=== PATIENT | male | born 2000 | race Caucasian/White ===

== ENCOUNTER 2022-05-12 09:15 | Outpatient (CLI) | payer BC, SELFPAY ==
[2022-05-12 11:34] LABS: Chloride* 104 mmol/L (96-114); Potassium* 4.2 mmol/L (3.6-5.1); Sodium* 140 mmol/L (135-149)
[2022-05-12 11:36] LABS: Cholesterol* 157 mg/dL (90-199)
[2022-05-12 11:37] LABS: Blood Urea Nitrogen* 17 mg/dL (5-24); Calcium* 9.3 mg/dL (8.4-10.6); Carbon Dioxide* 27 mmol/L (20-32); Estimated Glomerular Filt Rate 108 ml/min; Glucose* 93 mg/dL (60-115); Triglycerides* 92 mg/dL (40-149)
[2022-05-12 11:38] LABS: HDL Cholesterol* 52 mg/dL (>=40); LDL Cholesterol Calculated 87 mg/dL (<100)
== END 2022-05-12 09:16 | disposition home or self-care (01) ==
PROVIDERS: PCP Family Medicine; Visit Provider Family Medicine
DX: Z00.00 Encounter for general adult medical examination without abnormal findings (principal); Z13.6 Encounter for screening for cardiovascular disorders
CPT/HCPCS: 80048; 80061

== ENCOUNTER 2025-01-26 08:02 | Outpatient (CLI) | payer BC, SELFPAY ==
--- NOTE | 2025-02-07 12:13 | W.PM.SLEEP ---
Sleep Study Details Details Interpreting Provider: Yane Date of Sleep Study: 01/26/25 Sleep Study Details: STUDY TYPE:? Home unattended ? BMI:? 32.25 ORDERING PROVIDER:? Yane INDICATION:? Concerned about sleep apnea ? SLEEP SUMMARY:? 404 minutes monitored RESPIRATORY SUMMARY:? AHI 12.5 Low oxygen 84 1.4% of study oxygen less than 90% Snoring none recorded PERIODIC LIMB MOVEMENTS OF SLEEP:? Not record CARDIAC:? Range 59-110, mean 75 beats per minute IMPRESSION:? Mild obstructive sleep apnea RECOMMENDATION: Treatment options include CPAP dental appliance and/or airway expansion surgery.
== END 2025-01-26 08:03 | disposition home or self-care (01) ==
LOC: SLEEP 08:03
PROVIDERS: PCP Family Medicine; Visit Provider Otolaryngology
DX: G47.33 Obstructive sleep apnea (adult) (pediatric) (principal)
CPT/HCPCS: 95806

== ENCOUNTER 2025-08-25 07:36 | Day surgery (SDC) | payer BC, SELFPAY ==
[2025-08-25] VITALS (12 sets, daily range): BP systolic 103–136; BP diastolic 54–87; PULSE 58–104; RESP 16–28; TEMP 36.3–37.2; O2SAT 92–97; BMI 38.5
[2025-08-25] MEDS: LACTATED RINGERS 1000 ML 1,000 ML 100 ML IV (07:45)
[2025-08-25] MEDS: SODIUM CHLORIDE 0.9 % (FLUSH) 10 ML SYRINGE IVF (08:05)
[2025-08-25] MEDS: OXYMETAZOLINE 0.05% NASAL SPRAY 2 SPRAY NOSTRIL-B (08:12)
[2025-08-25] MEDS: MUPIROCIN 1 GM PACKET 1 APPLIC TOPICAL (09:30)
[2025-08-25] MEDS: AYR SALINE NASAL GEL 1 APPLIC NOSTRIL-B (09:30)
[2025-08-25] MEDS: BUPIVACAINE 0.5%/EPINEPHRINE 0.9 MG (30.9 ML) INJECTION (09:30)
--- NOTE | 2025-08-25 09:47 | P.ANES_ITS ---
Anesthesia Charges Start Date/Time Anesthesia Start Date: 08/25/25 Anesthesia Start Time: 08:51 Stop Date/Time Anesthesia Stop Date: 08/25/25 Anesthesia Stop Time: 09:41 Coding CPT Codes CPT Codes: ANESTH NOSE/SINUS SURGERY - 90946 ([id number]) QK - PROCESS ARTIST 2-4 CNCRNT ANES PROC, QX - PLAIN CLOTHES POLICE OFFICER SVC W/ MD MED DIRECTION, P2 - PATIENT W/MILD SYST DISEASE
--- NOTE | 2025-08-25 09:47 | W.ANESCHARGE ---
Anesthesia Charges Start Date/Time Anesthesia Start Date: 08/25/25 Anesthesia Start Time: 08:51 Stop Date/Time Anesthesia Stop Date: 08/25/25 Anesthesia Stop Time: 09:41 Coding CPT Codes CPT Codes: ANESTH NOSE/SINUS SURGERY - 02042 ([id number]) QK - SSIS ARCHITECT 2-4 CNCRNT ANES PROC, QX - ACCOUNT STRATEGIST SVC W/ MD MED DIRECTION, P2 - PATIENT W/MILD SYST DISEASE
--- NOTE | 2025-08-25 09:49 | P.ANES_ITS ---
Anesthesia Charges Start Date/Time Anesthesia Start Date: 08/25/25 Anesthesia Start Time: 08:51 Stop Date/Time Anesthesia Stop Date: 08/25/25 Anesthesia Stop Time: 09:41 Coding CPT Codes CPT Codes: ANESTH NOSE/SINUS SURGERY - 41118 ([id number]) QK - CERTIFIED PERSONAL TRAINER 2-4 CNCRNT ANES PROC, QX - ALLERGY PHYSICIAN SVC W/ MD MED DIRECTION, P3 - PATIENT W/SEVERE SYS DISEASE
--- NOTE | 2025-08-25 09:49 | W.ANESCHARGE ---
Anesthesia Charges Start Date/Time Anesthesia Start Date: 08/25/25 Anesthesia Start Time: 08:51 Stop Date/Time Anesthesia Stop Date: 08/25/25 Anesthesia Stop Time: 09:41 Coding CPT Codes CPT Codes: ANESTH NOSE/SINUS SURGERY - 95284 ([id number]) QK - SALARY AND WAGE ADMINISTRATOR 2-4 CNCRNT ANES PROC, QX - FREELANCE WEB DESIGNER SVC W/ MD MED DIRECTION, P3 - PATIENT W/SEVERE SYS DISEASE
--- NOTE | 2025-08-25 10:17 | SUR.PHASEI ---
patient met discharge criteria per anesthesia
[2025-08-25] MEDS: IBUPROFEN 200 MG TABLET PO (10:30)
[2025-08-25] MEDS: ACETAMINOPHEN 325 MG TABLET PO (10:30)
--- NOTE | 2025-08-25 10:53 | SUR.PHASEII ---
Pt nauseated after eating a few bites of pb toast. Cool cloth to forehead and applied Q-Easy aromatherapy patch to pt's gown. Will monitor.
--- NOTE | 2025-08-25 10:54 | P.ENTPROC_ITS ---
Procedure Note Date of procedure: 08/25/25 Procedure: Preop diagnosis deviated septum nasal obstruction inferior turbinate hypertrophy Postop same Procedure nasal septoplasty, submucous partial resection inferior turbinates bilateral Under general trach anesthesia patient was prepped and draped in usual fashion and the nose decongested and injected. A right hemitransfixion incision was made. Bilateral anterior and posterior tunnels were created. A vertical incision was made just anterior to the bony cartilage junction and the bone from the cartilage. The posterior deflected portions of septal bone were resected and a large piece from the returned to intraseptal space. Anteriorly there is a large left premaxillary wing deformity the bony portion was resected. A small strip of cartilage measuring 1 mm in height was also resected. The hemitransfixion was then closed with 2 4-0 chromic sutures A stab incision was made in the anterior of the right inferior turbinate a tunnel created with a [place] dissector. The dev bone was outfractured a conservative anterior submucous resection performed. The Coblation was used for hemostasis and to cauterize intramurally along the inferior 10%. This was repeated on the left side in identical fashion. Silastic stents were secured with 3-0 nylon and Merocel packing placed above the stents on each side. The patient procedure well was taken recovery in satisfactory condition. Blood loss was less than 10 mL. Surgeon: Yefri Che MD
== END 2025-08-25 12:02 | disposition home or self-care (01) ==
PROVIDERS: PCP Family Medicine; Visit Provider Otolaryngology
PROC: (CPT 30520; principal; 2025-08-25 08:30)
DX: J34.2 Deviated nasal septum (principal); J34.3 Hypertrophy of nasal turbinates; J34.89 Other specified disorders of nose and nasal sinuses
CPT/HCPCS: 30520; 30140; 00160; A9270; J0330; J1100; J1171; J2250; J2405; J2704; J2710; J3010; J7120